=== PATIENT | female | born 1975 | race Caucasian/White ===

== ENCOUNTER → 2017-04-02 | Outpatient (CLI) | payer OTHER ==
[2017-04-02 17:46] LABS: Blood Urea Nitrogen 13 mg/dL (7-17); Non-African American GFR(MDRD) >60 (>60 ml/min/1.73 sqM)
== END | disposition home or self-care (01) ==
LOC: LABPAT 17:22
PROVIDERS: ATTEND Family Medicine
DX: Z01.812 Encounter for preprocedural laboratory examination (principal)
CPT/HCPCS: 82565; 84520

== ENCOUNTER → 2017-04-03 | Outpatient (CLI) | payer OTHER | END | disposition home or self-care (01) | LOC: RADMRIMAIN 07:24 | PROVIDERS: ATTEND Family Medicine | DX: Z53.9 Procedure and treatment not carried out, unspecified reason (principal) ==

== ENCOUNTER → 2017-04-05 | Outpatient (CLI) | payer OTHER ==
--- NOTE | 2017-04-05 08:35 | MR ---
PRE AND POSTCONTRAST ENHANCED MRI OF THE BRAIN: CLINICAL HISTORY: G83.24 paralysis of arm affecting nondominant side CONTRAST: 15 ML Multihance Multiplanar and multispin-echo imaging of the brain was performed both before and after the administr ation of contrast. The ventricles, basal cisterns and sulci overlying the cerebral convexities are within normal limits. There is no evidence for midline shift or mass effect. Acute intracranial hemorrhage or extra-axial collection is not evident. There are no abnormal areas of increased or decreased signal intensity within the brain parenchyma. Following contrast administration, there is no evidence for pathologic enhancement or enhancing mass. The paranasal sinuses and mastoid air cells are well-aerated. IMPRESSION: Unremarkable pre and postcontrast enhanced MRI of the brain.
== END | disposition home or self-care (01) ==
LOC: RADMRIMAIN 07:41
PROVIDERS: ATTEND Family Medicine
DX: G83.24 Monoplegia of upper limb affecting left nondominant side (principal)
CPT/HCPCS: 70553; A9577

== ENCOUNTER → 2019-03-12 | Outpatient (CLI) | payer OTHER ==
--- NOTE | 2019-03-12 07:19 | MR ---
EXAMINATION TYPE: MR lumbar spine wo con DATE OF EXAM: 03/12/2019 COMPARISON: None HISTORY: 43-year-old female Low back pain / Disc degeneration TECHNIQUE: Multiplanar, multisequence images of the lumbar spine were acquired. FINDINGS: Vertebral body heights are preserved and alignment is maintained. No suspicious bone marrow replacement. Conus medullaris is normal. Facet arthropathy mid to lower lumbar spine. Mild degenerative disc disease is present with variable mild intervertebral disc desiccation from L2 through S1 levels. Minimal disc height loss at L5-S1. There is a left paracentral annular fissure at L4-L5 and L5-S1 and bulging discs at these levels. In addition, there is a component of mild underlying congenital spinal canal narrowing lower lumbar s pine with AP canal dimension of 1.1 cm. No prevertebral or paravertebral soft tissue abnormality. From T12 through L2 levels, no spinal canal or neural foraminal stenosis. At L2-L3, minimal bulging disc and mild facet degenerative change. No significant canal or foraminal stenosis. At L3-L4, there is facet arthropathy and mild bulging disc and a component of mild congenital canal n arrowing. There is minimal inferior right neuroforaminal narrowing. No significant spinal canal steno sis. At L4-L5, bulging disc with hypertrophic facet arthropathy, some ligamentum flavum thickening, and a component of mild congenital canal narrowing. There is overall circumferential attenuation of the the everett sac at this level without significant spinal canal stenosis. There is minimal bilateral inferior neuroforaminal narrowing, right greater than left. At L5-S1, mild bulging disc with facet arthropathy. Minimal bilateral inferior neuroforaminal narrowi ng on both sides. Synovial cysts are noted at the bilateral L5-S1 facet joints. On the left, one cyst abuts the exiting left L5 nerve root measuring 6 mm and a view are present posteriorly measuring up to 1.3 cm. On the right, there is a 7 mm laterally placed cyst which does not seem to contact the exiting nerve root. A posterior cyst measures 7 mm as well. IMPRESSION: 1. Mild degenerative disc disease L2-S1 levels with variable mild intervertebral disc desiccation and disc bulging. Minimal disc height loss at L5-S1 and left paracentral annular fissures at both L4-L5 and L5-S1. 2. Hypertrophic facet arthropathy mid to lower lumbar spine, greatest at L5-S1 where a number of syno vial cysts are present relating to the facet joints. In particular, a 6 mm synovial cyst on the left abuts the exiting left L5 nerve root. 3. A component of mild congenital canal narrowing lower lumbar spine. Superimposed degenerative disc disease further accentuates the canal narrowing particularly at L4-L5 but does not cause any signific ant spinal canal stenosis. 4. Variable minimal bilateral inferior neural foraminal narrowing as outlined above.
== END | disposition home or self-care (01) ==
LOC: RADMRIMAIN 06:23
PROVIDERS: ATTEND Physical Medicine & Rehabilitation
DX: M48.07 Spinal stenosis, lumbosacral region (principal); M51.17 Intervertebral disc disorders with radiculopathy, lumbosacral region; M46.97 Unspecified inflammatory spondylopathy, lumbosacral region; I10 Essential (primary) hypertension; M71.38 Other bursal cyst, other site; Q76.49 Other congenital malformations of spine, not associated with scoliosis
CPT/HCPCS: 72148

== ENCOUNTER → 2021-08-23 | Outpatient (CLI) | payer BC ==
--- NOTE | 2021-08-23 11:02 | XR ---
EXAMINATION TYPE: XR lumbar spine 2 or 3V DATE OF EXAM: 08/23/2021 COMPARISON: 12/02/2014 HISTORY: Left hip pain and low back pain TECHNIQUE: 3 view lumbar spine FINDINGS: There are 5 lumbar-type vertebral bodies. Pedicles are intact. Disc heights are preserved. Vertebral body heights are preserved. IMPRESSION: 1. Normal three-view lumbar spine
--- NOTE | 2021-08-23 11:03 | XR ---
EXAMINATION TYPE: XR Hip Complete LT DATE OF EXAM: 08/23/2021 COMPARISON: None HISTORY: Hip pain TECHNIQUE: 2 view left hip FINDINGS: Femoral head articulates with the acetabulum. Joint spaces preserved. No acute fracture or dislocation is evident. Follow-up can be performed as clinically indicated. IMPRESSION: 1. Normal 2 view left hip
== END | disposition home or self-care (01) ==
LOC: RADXRMAIN 10:24
PROVIDERS: ATTEND Internal Medicine
DX: M25.552 Pain in left hip (principal)
CPT/HCPCS: 72100; 73502

== ENCOUNTER → 2021-09-27 | Outpatient (CLI) | payer BC | END | disposition home or self-care (01) | LOC: RADMRIMAIN 08:37 | PROVIDERS: ATTEND Internal Medicine | DX: Z53.9 Procedure and treatment not carried out, unspecified reason (principal) ==

== ENCOUNTER 2021-10-26 10:07 | Emergency (ER) | payer BC ==
[2021-10-26 10:11] VITALS: BP 136/102; TEMP 97.8
[2021-10-26] MEDS ORDERED: SODIUM CHLORIDE 0.9% 50 ML IVPB ONE (12:00)
[2021-10-26] MEDS ORDERED: CASIRIVIMAB (REGN10933) (EUA) 600 MG, IMDEVIMAB (REGN10987) (EUA) 600 MG in SODIUM CHLO... IVPB ONE (12:00)
--- NOTE | 2021-10-26 12:31 | ED ---
URI HPI - General Chief Complaint: Upper Respiratory Infection Stated Complaint: Covid+/Wants Infusion Time Seen by Provider: 10/26/21 10:59 Source: patient, RN notes reviewed Mode of arrival: ambulatory Limitations: no limitations - History of Present Illness Initial Comments: Patient is a 46 she'll female that presents to the emergency department comp laining of upper respiratory tract symptoms. She no she is Covid-positive. She did bring her paperwork test result with her and we will scan and profile. Patient notes that she's had about 7 days of symptoms. She was otherwise well- appearing. She notes that she came in for monoclonal antibody infusion. She denied chest pain short of breath headache nausea vomiting diarrhea constipation fever fatigue chills. - Related Data Allergies Allergy/AdvReac Type Severity Reaction Status Date / Time erythromycin base Allergy Rash/Hives Verified 10/26/21 10:12 midazolam [From Versed] Allergy Anaphylaxis Verified 10/26/21 10:13 Penicillins Allergy Rash/Hives Verified 10/26/21 10:11 Sulfa (Sulfonamide Allergy Rash/Hives Verified 10/26/21 10:12 Antibiotics) Review of Systems ROS Statement: Those systems with pertinent positive or pertinent negative responses have been documented in the HPI. ROS Other: All systems not noted in ROS Statement are negative. Past Medical History Past Medical History: No Reported History History of Any Multi-Drug Resistant Organisms: None Reported Past Surgical History: No Surgical Hx Reported Past Psychological History: No Psychological Hx Reported Smoking Status: Never smoker Past Alcohol Use History: Occasional Past Drug Use History: None Reported General Exam Limitations: no limitations General appearance: alert, in no apparent distress, obese Head exam: Present: atraumatic, normocephalic, normal inspection Eye exam: Present: normal appearance, PERRL, EOMI. Absent: scleral icterus, conjunctival injection, periorbital swelling ENT exam: Present: normal exam, mucous membranes moist Neck exam: Present: normal inspection Respiratory exam: Present: normal lung sounds bilaterally. Absent: respiratory distress, wheezes, rales, rhonchi, stridor Cardiovascular Exam: Present: regular rate, normal rhythm, normal heart sounds. Absent: systolic murmur, diastolic murmur, rubs, gallop, clicks Extremities exam: Present: normal inspection, full ROM, normal capillary refill. Absent: tenderness, pedal edema, joint swelling, calf tenderness Neurological exam: Present: alert, oriented X3 Psychiatric exam: Present: normal affect, normal mood Skin exam: Present: warm, dry, intact, normal color. Absent: rash Course Vital Signs 10/26/21 10/26/21 10:08 11:40 Temperature 97.8 F Pulse Rate 95 Respiratory 18 16 Rate Blood Pressure 136/102 O2 Sat by Pulse 97 Oximetry Medical Decision Making - Medical Decision Making 46-year-old female Covid-positive here for monoclonal antibody infusion. A she is test results will be scanned in the file. She does meet criteria for monoclonal antibody infusion and wishes to undergo it. Case discussed with Dr. Peres, patient discharge home after infusion. Disposition Clinical Impression: COVID Disposition: HOME SELF-CARE Condition: Stable Instructions (If sedation given, give patient instructions): Coronavirus Disease 2019 (COVID-19) Additional Instructions: Please return to the Emergency Department if symptoms worsen or any other concerns. Is patient prescribed a controlled substance at d/c from ED?: No Referrals: Charlie Alberto MD [Primary Care Provider] - 1-2 days Time of Disposition: 12:31
[2021-10-26 13:53] VITALS: PULSE 75; RESP 18
== END 2021-10-26 13:52 | disposition home or self-care (01) ==
LOC: EC 10:07
DX: U07.1 COVID-19 (principal); Z88.1 Allergy status to other antibiotic agents; Z88.0 Allergy status to penicillin; Z88.2 Allergy status to sulfonamides
CPT/HCPCS: 99283; Q0244

== ENCOUNTER → 2022-02-07 | Outpatient (CLI) | payer BC ==
--- NOTE | 2022-02-08 08:09 | US ---
EXAMINATION TYPE: US arterial LE single level DATE OF EXAM: 02/07/2022 10:55 AM CLINICAL HISTORY: I73.9 pad, R20.2 numbness. History of hyperlipidemia and hypertension. Doppler Waveforms: Right: Monophasic Left: Biphasic Pressure Gradients: No Ankle-Brachial Indices: Right: 1.07 Left: 1.04 IMPRESSION: Normal HUI values but monophasic flow noted right femoral arterial level cannot exclude a proximal stenosis.
== END | disposition home or self-care (01) ==
LOC: RADUSWWP 10:22
PROVIDERS: ATTEND Internal Medicine
DX: I73.9 Peripheral vascular disease, unspecified (principal); R20.2 Paresthesia of skin
CPT/HCPCS: 93922

== ENCOUNTER 2022-02-13 14:38 | Emergency (ER) | payer BC ==
[2022-02-13 14:46] VITALS: RESP 18; TEMP 98.4
[2022-02-13] MEDS ORDERED: SODIUM CHLORIDE 0.9% 1,000 ML IV STA (17:27)
[2022-02-13] MEDS ORDERED: LORazepam 2 MG/ML INJ IV STA (17:34)
--- NOTE | 2022-02-13 17:41 | ED ---
General Adult HPI - General Chief complaint: Extremity Injury, Upper Stated complaint: Left arm pain and numbness Time Seen by Provider: 02/13/22 16:50 Source: patient, RN notes reviewed Mode of arrival: ambulatory Limitations: no limitations - History of Present Illness Initial comments: Patient is a pleasant 46-year-old female presenting to the emergency department with left arm problems. Symptoms have been occurring for months. Patient has discomfort of the left arm more on the medial aspect extending down. Patient did have one episode each ago where the distal extremity looks pale. Patient questions if it may look a little bit odd at this time as well. Patient has at times notice some weakness with her senior painter. Patient is being evaluated by Dr. Espinoza for peripheral arterial disease. Patient states her feet frequently a cold. Patient did have a recent ultrasound of her arm. Patient also had recent HUI. No chest pain. No neck pain. No headache or confusion. No speech from his. - Related Data Home Medications Medication Instructions Recorded Confirmed Ascorbic Acid [Vitamin C] 500 mg PO DAILY 02/13/22 02/13/22 Cholecalciferol [Vitamin D3 (25 25 mcg PO DAILY 02/13/22 02/13/22 Mcg = 1000 Iu)] Quercetin 250mg 250 mg PO DAILY 02/13/22 02/13/22 Zinc 50 mg PO DAILY 02/13/22 02/13/22 lisinopriL [Zestril] 20 mg PO DAILY 02/13/22 02/13/22 Allergies Allergy/AdvReac Type Severity Reaction Status Date / Time erythromycin base Allergy Rash/Hives Verified 02/13/22 19:06 midazolam [From Versed] Allergy Anaphylaxis Verified 02/13/22 19:06 Penicillins Allergy Rash/Hives Verified 02/13/22 19:06 Sulfa (Sulfonamide Allergy Rash/Hives Verified 02/13/22 19:06 Antibiotics) Review of Systems ROS Statement: Those systems with pertinent positive or pertinent negative responses have been documented in the HPI. ROS Other: All systems not noted in ROS Statement are negative. Constitutional: Denies: fever Eyes: Denies: eye pain ENT: Denies: ear pain Respiratory: Denies: cough Cardiovascular: Denies: chest pain Endocrine: Denies: fatigue Gastrointestinal: Denies: abdominal pain Genitourinary: Denies: urgency Musculoskeletal: Reports: as per HPI Skin: Reports: as per HPI Neurological: Reports: as per HPI. Denies: headache, confusion Past Medical History Past Medical History: Hyperlipidemia, Hypertension History of Any Multi-Drug Resistant Organisms: None Reported Past Surgical History: Adenoidectomy, Tonsillectomy Additional Past Surgical History / Comment(s): D&C Past Psychological History: No Psychological Hx Reported Smoking Status: Never smoker Past Alcohol Use History: Occasional Past Drug Use History: None Reported General Exam Limitations: no limitations General appearance: alert, in no apparent distress Head exam: Present: atraumatic, normocephalic Eye exam: Present: normal appearance Neck exam: Present: normal inspection. Absent: tenderness Respiratory exam: Present: normal lung sounds bilaterally Cardiovascular Exam: Present: regular rate, normal rhythm, normal heart sounds Expanded Peripheral pulses: 2+: Radial (R), Radial (L), Posterior Tibialis (R), Posterior Tibialis (L) GI/Abdominal exam: Present: soft. Absent: tenderness Extremities exam: Present: normal inspection Neurological exam: Present: alert. 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 Absent: cyanosis Course Vital Signs 02/13/22 02/13/22 14:43 19:08 Temperature 98.4 F Pulse Rate 81 82 Respiratory 18 18 Rate Blood Pressure 136/84 121/80 O2 Sat by Pulse 99 98 Oximetry - Reevaluation(s) Reevaluation #1: 02/13/22 17:35 Discussion had with patient regarding ET of neck and brain however patient re fuses secondary to radiation exposure. She only wants CT of the extremity at this time. Discussion also had with patient's ALLERGY to Versed. Patient states she had cramping with this and needed to come to the hospital for an injection. EKG Findings - EKG Comments: EKG Findings:: Sinus rhythm 83. NM 169. QRS 75. QT 334. QTC 02/19/1974. Normal axis. Normal QRS. No acute ST change. Medical Decision Making - Medical Decision Making Patient reevaluated and resting comfortably in bed. Patient remained symptom- free at this time. Patient states Ativan did make her feel better and does request some for home. Patient is updated on results and need for follow-up with multiple providers including Dr. Espinoza, orthopedics, possible rheumatology, possible neurology. Also PCP. - Lab Data Result diagrams: 02/13/22 17:41 02/13/22 17:41 Lab Results 02/13/22 02/13/22 02/13/22 Range/Units 17:41 17:41 17:41 WBC 9.7 (3.8-10.6) k/uL RBC 4.96 (3.80-5.40) m/uL Hgb 15.7 (11.4-16.0) gm/dL Hct 47.9 H (34.0-46.0) % MCV 96.6 (80.0-100.0) fL MCH 31.6 (25.0-35.0) pg MCHC 32.7 (31.0-37.0) g/dL RDW 13.5 (11.5-15.5) % Plt Count 348 (150-450) k/uL MPV 8.5 Neutrophils % 62 % Lymphocytes % 28 % Monocytes % 5 % Eosinophils % 3 % Basophils % 1 % Neutrophils # 6.0 (1.3-7.7) k/uL Lymphocytes # 2.7 (1.0-4.8) k/uL Monocytes # 0.4 (0-1.0) k/uL Eosinophils # 0.3 (0-0.7) k/uL Basophils # 0.1 (0-0.2) k/uL PT 10.2 (9.0-12.0) sec INR 0.9 (<1.2) APTT 26.0 (22.0-30.0) sec Sodium 136 L (137-145) mmol/L Potassium 4.4 (3.5-5.1) mmol/L Chloride 106 (98-107) mmol/L Carbon Dioxide 20 L (22-30) mmol/L Anion Gap 10 mmol/L BUN 6 L (7-17) mg/dL Creatinine 0.71 (0.52-1.04) mg/dL Est GFR (CKD-EPI)AfAm >90 (>60 ml/min/1.73 sqM) Est GFR (CKD-EPI)NonAf >90 (>60 ml/min/1.73 sqM) Glucose 86 (74-99) mg/dL Calcium 9.5 (8.4-10.2) mg/dL Total Bilirubin 1.3 (0.2-1.3) mg/dL AST 24 (14-36) U/L ALT 39 H (4-34) U/L Alkaline Phosphatase 51 (38-126) U/L Troponin I (0.000-0.034) ng/mL Total Protein 8.0 (6.3-8.2) g/dL Albumin 4.8 (3.5-5.0) g/dL 02/13/22 Range/Units 17:41 WBC (3.8-10.6) k/uL RBC (3.80-5.40) m/uL Hgb (11.4-16.0) gm/dL Hct (34.0-46.0) % MCV (80.0-100.0) fL MCH (25.0-35.0) pg MCHC (31.0-37.0) g/dL RDW (11.5-15.5) % Plt Count (150-450) k/uL MPV Neutrophils % % Lymphocytes % % Monocytes % % Eosinophils % % Basophils % % Neutrophils # (1.3-7.7) k/uL Lymphocytes # (1.0-4.8) k/uL Monocytes # (0-1.0) k/uL Eosinophils # (0-0.7) k/uL Basophils # (0-0.2) k/uL PT (9.0-12.0) sec INR (<1.2) APTT (22.0-30.0) sec Sodium (137-145) mmol/L Potassium (3.5-5.1) mmol/L Chloride (98-107) mmol/L Carbon Dioxide (22-30) mmol/L Anion Gap mmol/L BUN (7-17) mg/dL Creatinine (0.52-1.04) mg/dL Est GFR (CKD-EPI)AfAm (>60 ml/min/1.73 sqM) Est GFR (CKD-EPI)NonAf (>60 ml/min/1.73 sqM) Glucose (74-99) mg/dL Calcium (8.4-10.2) mg/dL Total Bilirubin (0.2-1.3) mg/dL AST (14-36) U/L ALT (4-34) U/L Alkaline Phosphatase (38-126) U/L Troponin I <0.012 (0.000-0.034) ng/mL Total Protein (6.3-8.2) g/dL Albumin (3.5-5.0) g/dL - Radiology Data Radiology results: report reviewed (CT angios left upper extremity reported as negative.) Disposition Clinical Impression: Paresthesia Disposition: HOME SELF-CARE Condition: Stable Instructions (If sedation given, give patient instructions): Paresthesia (ED) Additional Instructions: Please do follow-up with Dr. Espinoza and your primary care physician in the next day or 2 for recheck. Please follow-up also with Dr. Daniels. Consider follow-up with rheumatology and neurology. Return for weakness, color change, i ncreased pain, worsening or changing symptoms or other concerns. Aspirin daily. Is patient prescribed a controlled substance at d/c from ED?: No Referrals: Danny Alexandre MD [Primary Care Provider] - 1-2 days Gage Espinoza DO [STAFF PHYSICIAN] - 1-2 days Sindhu Daniels DO [Doctor of Osteopathic Medicine] - 1-2 days Time of Disposition: 19:19
[2022-02-13 17:58] LABS: ALT 39 U/L (4-34); AST 24 U/L (14-36); African American GFR (CKD) >90 (>60 ml/min/1.73 sqM); Albumin 4.8 g/dL (3.5-5.0); Alkaline Phosphatase 51 U/L (38-126); Anion Gap 10 mmol/L; Blood Urea Nitrogen 6 mg/dL (7-17); Calcium 9.5 mg/dL (8.4-10.2); Carbon Dioxide 20 mmol/L (22-30); Chloride 106 mmol/L (98-107); Glucose 86 mg/dL (74-99); Non-African American GFR(CKD) >90 (>60 ml/min/1.73 sqM); Sodium 136 mmol/L (137-145); Total Bilirubin 1.3 mg/dL (0.2-1.3)
[2022-02-13 17:59] LABS: Basophils # (A) 0.1 k/uL (0-0.2); Basophils % (A) 1 %; Eosinophils # (A) 0.3 k/uL (0-0.7); Eosinophils % (A) 3 %; HCT 47.9 % (34.0-46.0); HGB 15.7 gm/dL (11.4-16.0); Lymphocytes # (A) 2.7 k/uL (1.0-4.8); Lymphocytes % (A) 28 %; MCH 31.6 pg (25.0-35.0); MCHC 32.7 g/dL (31.0-37.0); MCV 96.6 fL (80.0-100.0); Mean Platelet Volume 8.5; Monocytes # (A) 0.4 k/uL (0-1.0); Monocytes % (A) 5 %; Neutrophils % (A) 62 %; Platelet Count 348 k/uL (150-450); RBC 4.96 m/uL (3.80-5.40); RDW 13.5 % (11.5-15.5); WBC 9.7 k/uL (3.8-10.6)
[2022-02-13 18:02] LABS: Potassium 4.4 mmol/L (3.5-5.1)
[2022-02-13 18:10] LABS: INR 0.9 (<1.2); Prothrombin Time 10.2 sec (9.0-12.0)
--- NOTE | 2022-02-13 18:39 | CT ---
EXAMINATION TYPE: CT angio upper extremity LT DATE OF EXAM: 02/13/2022 COMPARISON: None HISTORY: pain and color chnages, no injury CT DLP: 262.7 mGycm Automated exposure control for dose reduction was used. CONTRAST: Performed with IV Contrast, patient injected with 100 mL of Isovue 370. Images obtained from the aortic arch to the fingers of the left arm with IV contrast. There are Three -D postprocessed images. There is normal branching pattern of the great vessels on the aortic arch. There is arterial flow in the left subclavian artery and axillary artery there is arterial flow in the brachial artery. There i s arterial flow in the radial and ulnar arteries in the forearm. There is suboptimal contrast density in the arteries of the palm of the hand. This area is not well evaluated. Arterial flow is seen with contrast in the distal ulnar artery and distal radial artery at the wrist. No evidence of hemodynami c stenosis. IMPRESSION: Negative CT angiogram of the left arm. Arteries of the hand are not well evaluated. Ultrasound of the distal radial and ulnar arteries would be helpful to confirm normal waveforms if clinically indicate d.
[2022-02-13 19:09] VITALS: BP 121/80; PULSE 82
[2022-02-13] MEDS ORDERED: LORazepam 1 MG TAB PO STA (19:17)
== END 2022-02-13 19:25 | disposition home or self-care (01) ==
LOC: EC 14:38
DX: R20.2 Paresthesia of skin (principal); E78.5 Hyperlipidemia, unspecified; I10 Essential (primary) hypertension; Z88.0 Allergy status to penicillin; Z88.2 Allergy status to sulfonamides
CPT/HCPCS: 99284; 96374; 96361 ×2; 36415; 93005; 80053; 84484; 85025; 85610; 85730; 73206; J2060; Q9967

== ENCOUNTER → 2022-03-02 | Outpatient (CLI) | payer BC ==
--- NOTE | 2022-03-02 13:06 | XR ---
EXAMINATION TYPE: XR chest 2V DATE OF EXAM: 03/02/2022 COMPARISON: NONE HISTORY: SOB TECHNIQUE: Frontal and lateral views of the chest are obtained. FINDINGS: Grossly unremarkable lungs. No pleural effusion or pneumothorax. No gross cardiomegaly. De generative changes of the midthoracic spine. IMPRESSION: No significant pulmonary abnormality identified.
== END | disposition home or self-care (01) ==
LOC: RADXRMAIN 09:26
PROVIDERS: ATTEND Internal Medicine
DX: R05.9 Cough, unspecified (principal); R06.02 Shortness of breath
CPT/HCPCS: 71046

== ENCOUNTER → 2022-10-02 | Outpatient (CLI) | payer BC ==
[2022-10-02 21:05] LABS: Alternaria alternata IgE <0.10 kU/L; Aspergillus fumagatus IgE <0.10 kU/L; Birch IgE <0.10 kU/L; Cat Epith & Dander IgE <0.10 kU/L; Cladosporian herbarum IgE <0.10 kU/L; Cockroach IgE 0.12 kU/L; Dermato. farinae IgE 0.47 kU/L; Dog Dander IgE <0.10 kU/L; Elm IgE <0.10 kU/L; Maple (Box Elder) IgE <0.10 kU/L; Oak IgE <0.10 kU/L; Ragweed,Common IgE <0.10 kU/L; Red Top (Bentgrass) IgE <0.10 kU/L
== END | disposition home or self-care (01) ==
LOC: LABWHC1 08:41
PROVIDERS: ATTEND Internal Medicine Critical Care Medicine
DX: R09.82 Postnasal drip (principal)
CPT/HCPCS: 36415; 82785; 86003

== ENCOUNTER → 2022-10-25 | Outpatient (CLI) | payer BC ==
[2022-10-26 11:38] LABS: IgG Subclass 1 558.4 mg/dL (382.40-928.60); IgG Subclass 2 212.2 mg/dL (241.80-700.30); IgG Subclass 3 8.7 mg/dL (21.82-176.00); IgG Subclass 4 0.6 mg/dL (3.92-86.40)
== END | disposition home or self-care (01) ==
LOC: LABWHC1 14:16
PROVIDERS: ATTEND Internal Medicine Critical Care Medicine
DX: J45.901 Unspecified asthma with (acute) exacerbation (principal)
CPT/HCPCS: 36415; 82787

== ENCOUNTER → 2023-03-14 | Outpatient (CLI) | payer BC ==
[2023-03-14 15:23] LABS: Basophils # (A) 0.12 X 10*3/uL (0.00-0.10); Basophils % (A) 1.1 %; Eosinophils # (A) 0.44 X 10*3/uL (0.04-0.35); Eosinophils % (A) 3.9 %; HCT 46.2 % (37.2-46.3); HGB 14.8 g/dL (12.0-15.0); Immature Grans, Automated 0.5 %; Lymphocytes # (A) 2.59 X 10*3/uL (0.90-5.00); MCH 30.5 pg (27.0-32.0); MCV 95.1 fL (80.0-97.0); Mean Platelet Volume 10.2 fL (9.5-12.2); Monocytes # (A) 0.93 X 10*3/uL (0.20-1.00); Monocytes % (A) 8.3 %; NRBC Per 100 WBC 0 /100 WBCS (0.0-0.0); Neutrophils # (A) 7.13 X 10*3/uL (1.80-7.70); Neutrophils % (A) 63.2 %; Platelet Count 351 X 10*3/uL (140-440); RBC 4.86 X 10*6/uL (4.10-5.20); RDW 13.4 % (11.5-14.5); WBC 11.27 X 10*3/uL (4.50-10.00)
[2023-03-14 16:28] LABS: ALT 45 U/L (8-44); AST 28 U/L (13-35); African American GFR (CKD) 112.7 (60.0-200.0); Albumin 4.7 g/dL (3.8-4.9); Albumin/Globulin Ratio 1.95 (1.60-3.17); Alkaline Phosphatase 62 U/L (41-126); BUN/Creat Ratio 18.37 Ratio (12.00-20.00); Blood Urea Nitrogen 13.5 mg/dL (9.0-27.0); Calcium 9.6 mg/dL (8.7-10.3); Carbon Dioxide 20.2 mmol/L (20.0-27.5); Chloride 104 mmol/L (96-109); Chol/HDL Ratio 4.67 Ratio; Globulin 2.4 g/dL (1.6-3.3); Glucose 79 mg/dL (70-110); LDL Cholesterol,Calculated 231.2 mg/dL (0.0-131.0); Magnesium 2.3 mg/dL (1.5-2.4); Non-African American GFR(CKD) 97.3 (60.0-200.0); Potassium 4.3 mmol/L (3.5-5.5); Sodium 140 mmol/L (135-145); Total Protein 7.1 g/dL (6.2-8.2)
[2023-03-14 23:05] LABS: Immunoglobulin E 9.35 IU/mL (0.00-114.00)
== END | disposition home or self-care (01) ==
LOC: LABWHC1 08:48
PROVIDERS: ATTEND Internal Medicine
DX: Z00.00 Encounter for general adult medical examination without abnormal findings (principal); I10 Essential (primary) hypertension; E78.2 Mixed hyperlipidemia; J41.1 Mucopurulent chronic bronchitis; M47.16 Other spondylosis with myelopathy, lumbar region; F41.9 Anxiety disorder, unspecified
CPT/HCPCS: 36415; 80053; 80061; 82306; 82784; 82785; 83036; 83735; 84439; 84443; 84481; 85025; 86376

== ENCOUNTER → 2023-12-31 | Outpatient (CLI) | payer BC ==
--- NOTE | 2024-01-02 10:20 | MM ---
Reason for Exam: Screening (asymptomatic). Last mammogram was performed 8 year(s) and 3 month(s) ago. Patient History: Menarche at age 11. First Full-Term at age 25. Paternal grandmother had breast cancer. Mother had breast cancer, age 56. Last menstrual period: 12/01/2023 Risk Values: Dulce 5 year model risk: 2.0%. NCI Lifetime model risk: 18.8%. Prior Study Comparison: 02/22/2011 Bilateral Diagnostic Mammogram, [facility]. 09/28/2015 Bilateral Screening Mammogram, [facility]. Tissue Density: The breast tissue is heterogeneously dense. This may lower the sensitivity of mammography. Findings: Analyzed By CAD. There is no suspicious group of microcalcifications or new suspicious mass. Overall Assessment: Negative, BI-RAD 1 Management: Screening Mammogram of both breasts in [address] [facility] will attempt to contact patient to return for supplemental views and ultrasound if indicated. Patient should continue monthly self-breast exams. A clinical breast exam by your physician is recommended on an annual basis. This exam should not preclude additional follow-up of suspicious palpable abnormalities. Note on Dulce scores and lifetime risk: 1. A Dulce score greater than 3% is considered moderate risk. If this is the case, consider specialist referral to assess eligibility for a risk reducing agent. 2. If overall lifetime risk for the development of breast cancer is 20% or higher, the patient may qualify for future screening with alternating mammogram and breast MRI. Electronically signed and approved by: Martinez Schroeder DO
== END | disposition home or self-care (01) ==
LOC: RADMAMWWP 07:02
PROVIDERS: ATTEND Obstetrics & Gynecology
DX: Z12.31 Encounter for screening mammogram for malignant neoplasm of breast (principal); Z80.3 Family history of malignant neoplasm of breast
CPT/HCPCS: 77063; 77067

== ENCOUNTER → 2025-03-23 | Outpatient (CLI) | payer BC | END | disposition home or self-care (01) | LOC: LABWHC1 09:09 | PROVIDERS: ATTEND Internal Medicine Critical Care Medicine | DX: D80.1 Nonfamilial hypogammaglobulinemia (principal) | CPT/HCPCS: 36415; 82784 ==

== ENCOUNTER → 2025-03-23 | Outpatient (CLI) | payer BC ==
--- NOTE | 2025-03-23 10:23 | CT ---
EXAMINATION TYPE: CT neck chest w con CT DLP: 590.9 mGycm, Automated exposure control for dose reduction was used. DATE OF EXAM: 03/23/2025 10:02 AM COMPARISON: Chest radiograph 03/20/2025, 03/31/2024, 03/02/2024, cervical spine radiograph 04/07/2022. CLINICAL INDICATION:Female, 49 years old with history of R04.2 HEMOPTYSIS R59.0 LOCALIZED ENLARGED LY MPH NO;, left side enlarged lymph TECHNIQUE: Standard enhanced CT of the neck and chest. Axial sections with coronal and sagittal refo rmats were obtained. Contrast used:100 ml mL of Isovue 300 with IV Contrast FINDINGS: BRAIN: Visualized portions are grossly unremarkable. ORBITS: Unremarkable SINUSES: Left maxillary sinus 6 mm mucus retention cyst. The remaining visualized sinuses are clear. SUPRAHYOID NECK: The oropharynx, oral cavity, parapharyngeal and retropharyngeal spaces are clear and symmetric. The nasopharynx is unremarkable. INFRAHYOID NECK: The larynx, hypopharynx, and supraglottic area are clear and symmetric. PAROTID GLANDS: Unremarkable. SUBMANDIBULAR GLANDS: Unremarkable. MUSCULOSKELETAL: No acute osseous pathology. LYMPH NODES: No lymph node greater than 1 cm short axis identified.. VASCULAR STRUCTURES: Visualized major arteries are patent without evidence of aneurysm. THORACIC INLET/AIRWAY: Airway is patent. The lung apices are clear. SOFT TISSUES/THYROID: Subcentimeter hypodense right thyroid lobe nodule. The remainder of the soft ti ssues are unremarkable. OTHER: none. LUNGS/ PLEURA: No pleural effusion, pneumothorax, focal consolidation. Minimal dependent bilateral lo wer lobe subsegmental atelectasis. No suspicious pulmonary nodule or mass. AIRWAY: Patent and unremarkable. HEART: Size within normal limits.No pericardial effusion. No coronary artery calcifications. MEDIASTINUM: No evidence of adenopathy. VASCULATURE: No aortic aneurysm. MUSCULOSKELETAL: No acute osseous abnormalities. No aggressive osseous lesion. SOFT TISSUES/LYMPH NODES: Unremarkable. UPPER ABDOMEN: No significant findings. IMPRESSION No CT evidence for abnormality corresponding to patient's symptomatology. [facility], , 03/23/2025 10:21 AM
== END | disposition home or self-care (01) ==
LOC: RADCTMAIN 09:29
PROVIDERS: ATTEND Internal Medicine Critical Care Medicine
DX: R04.2 Hemoptysis (principal); R59.0 Localized enlarged lymph nodes
CPT/HCPCS: 70491; 71260; Q9967